=== PATIENT | male | born 1980 ===

== ENCOUNTER 2021-07-15 14:10 | Emergency (ER) | payer OTHER ==
--- NOTE | 2021-07-15 14:38 | NUR ---
PT NIL X 1. ATTEMPTED TO CALL PT FROM LOBBY TO TRIAGE WITH NO RESPONSE.
--- NOTE | 2021-07-15 14:47 | NUR ---
ATTEMPT TO CALL PT FROM LOBBY TO TRIAGE X 2. PT NIL.
--- NOTE | 2021-07-15 14:53 | NUR ---
ATTEMPT TO CALL PT FROM LOBBY TO TRIAGE X 3. PT NIL.
== END 2021-07-15 15:08 | disposition left against medical advice (07) ==
LOC: ED 14:30
DX: M79.10 Myalgia, unspecified site (principal); Z53.21 Procedure and treatment not carried out due to patient leaving prior to being seen by health care provider